=== PATIENT | female | born 1950 | race Caucasian/White ===

== ENCOUNTER → 2025-03-08 10:34 | Outpatient (REF) | payer MEDICARE, OTHER, SELFPAY ==
[2025-03-08 11:14] LABS: Hematocrit 37.2 % (37.0-47.0); Hemoglobin 12.1 g/dL (12.0-16.0); Mean Corp Hgb Conc. 32.5 g/dL (33.0-37.0); Mean Corpuscular Volume 91.9 fL (81.0-99.0); Platelet Count 230 10^3/uL (130-400); Red Cell Dist. Width 13.0 % (11.5-14.5)
[2025-03-08 12:29] LABS: Blood Urea Nitrogen 14 mg/dl (7-17); Calcium 9.2 mg/dl (8.4-10.2); Carbon Dioxide 31 mmol/L (22-30); Chloride 103 mmol/L (98-107); Glucose 93 mg/dl (70-99); Potassium 4.3 mmol/L (3.5-5.1); Sodium 138 mmol/L (135-145); eGFR > 60.00
== END ==
LOC: SDSPAT 10:34
PROVIDERS: ATTENDING PHYSICIAN Surgery; FAMILY PHYSICIAN Family Medicine
DX: Z01.818 Encounter for other preprocedural examination (principal)
CPT/HCPCS: 36415; 80048; 85027; 93005

== ENCOUNTER 2025-03-21 06:17 | Day surgery (SDC) | payer MEDICARE, OTHER, SELFPAY ==
[2025-03-08 14:10] VITALS: BMI 18.8
[2025-03-21] VITALS (15 sets, daily range): BP systolic 105–128; BP diastolic 54–94
--- NOTE | 2025-03-21 08:40 | HP.FOC2 ---
Focused History & Physical
Chief Complaint
HPI:
Chief Complaint: Right inguinal hernia
HPI / Indication for Planned Procedure: Patient is a 74-year-old female recently seen in outpatient surgical evaluation secondary to a history of a visible and palpable swelling in the right inguinal region. It is present upon standing and varying
in size, typically larger at the end of the day. She has an awareness of the hernia being present and occasional discomfort. Physical examination confirmed the presence of a readily apparent and reducible right inguinal hernia. I reviewed with
the patient treatment options she wished to pursue operative correction. We discussed various operative approaches to repair and have elected to proceed with a robotic assisted laparoscopic right inguinal herniorrhaphy with mesh.
Relevant Past Medical History: Other (Chronic back pain)
Relevant Social History: Negative
Relevant Family History: Negative
Relevant Past Surgical History: Positive for ()
Review of Systems
Review of Pertinent Systems: All Systems Negative
Medication
See Medication form for detailed medications: Yes
Medication List (including Herbals & OTC):
oxycodone 10 mg tablet 10 mg PO Q6H PRN PAIN 03/16/25
Anthony Master 1 cap PO DAILY 03/18/25
Night Renew 1 cap PO HS 03/18/25
calcium 1 tab PO WEST 03/18/25
diazepam 5 mg tablet (Valium) 5 mg PO BID PRN back spasms 03/18/25
dicyclomine 20 mg tablet 20 mg PO BID PRN stomach pain 03/18/25
prochlorperazine maleate 10 mg tablet (Compazine) 10 mg PO Q6H PRN nausea 03/18/25
trazodone 50 mg tablet 50 mg PO HS 03/18/25
Medications Reviewed: Yes
Allergies and Reactions
Patient has Allergies: Yes
Noted Allergies and Reactions:
Allergy/AdvReac Type Severity Reaction Status Date / Time
Iodinated Contrast Media Allergy GENERALIZED Verified 03/21/25 08:34
BURNING
SENSATION
iodine Allergy GENERALIZED Verified 03/21/25 08:34
BURNING
SENSATION
ketorolac (From Toradol) Allergy Hives Verified 03/21/25 08:34
latex Allergy Hives Verified 03/21/25 08:34
'DETERGENT USED ON HOSPITAL Allergy Rash Uncoded 03/21/25 08:34
GOWN'
Pertinent Physical Exam
All Other Systems: Negative
Head/Neck: Normal
Lungs: Normal
Heart: Normal
Abdomen: Other (Reducible right inguinal hernia)
Extremities: Normal
Neurological: Normal
Diagnosis / Assessment
74-year-old female presenting for scheduled operative correction of right inguinal hernia
Plan / Procedure
Robotic assisted laparoscopic repair of right inguinal hernia with mesh
Anesthesia/Sedation to be done by Anesthesia Provider: Yes
[2025-03-21] MEDS: TYLENOL 1000 MG PO (08:41)
--- NOTE | 2025-03-21 11:03 | W.SUR.PREOP ---
Pre-Operative Surgical Note
-
I have examined this patient prior to the performance of the scheduled procedure.
The patient's condition is unchanged from the time of the current History and
Physical and the patient is able to undergo the scheduled procedure.
--- NOTE | 2025-03-21 11:03 | W.IMMPOSTOP ---
Addendum entered and electronically signed by All Syed MD 03/21/25 11:23:
#[id number]
Original Note:
Surgical Immed Post Op Note
-
Primary Surgeon: All Syed MD
Assisting Surgeon: Ale Dillon NP
Pre-op Diagnosis: Right inguinal hernia
Post-op Diagnosis: Right inguinal hernia; indirect
Procedure Performed: Robotic assisted laparoscopic THELMA repair right inguinal hernia with mesh; 3D max large mid weight
Anesthesia Type: GETA +0.25% Marcaine with epi
Specimen / Cultures: None
Estimated Blood Loss: 4 mL
Complications: None immediate
Operative Findings: Right indirect inguinal hernia; fat-containing. 3D max large mid weight mesh repair secured to Stephen's ligament with 2-0 Vicryl stitch x 2. Peritoneal flap closed with 2-0 Monocryl STRATAFIX spiral. Direct and femoral spaces
normal. No additional incidental findings
The assistance of Penelope Dillon NP was required due to the complexity of the procedure. During the procedure Penelope Dillon NP assisted with port placement, robotic instrumentation and suture material exchanges, and closure of the surgical
incision sites. I was present for the entirety of the operative procedure.
[2025-03-21] MEDS: ZOFRAN 4 MG IV (12:22)
[2025-03-21] MEDS: DILAUDID 0.25 MG IV ×2 (12:34→13:07)
== END 2025-03-21 14:23 | disposition home or self-care (01) ==
LOC: SDS 06:17
PROVIDERS: ATTENDING PHYSICIAN Surgery; FAMILY PHYSICIAN Family Medicine
DX: K40.90 Unilateral inguinal hernia, without obstruction or gangrene, not specified as recurrent (principal)
CPT/HCPCS: 49650; C1781

== ENCOUNTER → 2025-03-31 11:07 | Outpatient (REF) | payer MEDICARE, OTHER, SELFPAY | LOC: MRI 3T 11:07 | PROVIDERS: ATTENDING PHYSICIAN Physical Medicine & Rehabilitation; FAMILY PHYSICIAN Surgery | DX: M54.50 Low back pain, unspecified (principal); G89.29 Other chronic pain | CPT/HCPCS: 72148 ==

== ENCOUNTER → 2025-04-06 11:56 | Outpatient (REF) | payer MEDICARE, OTHER, SELFPAY | LOC: REG 11:56 | PROVIDERS: ATTENDING PHYSICIAN Physical Medicine & Rehabilitation; FAMILY PHYSICIAN Family Medicine | DX: M54.50 Low back pain, unspecified (principal) | CPT/HCPCS: 80306; 80307 ==